=== PATIENT | male | born 1960 | race Hispanic/Latino ===

== ENCOUNTER 2017-11-17 09:54 | Outpatient (CLI) | payer MEDICARE ==
[2017-11-17 10:49] LABS: Hemoglobin 15.7 g/dL (14.0-18.0); Mean Corpuscular HGB CONC 32.1 g/dL (32.0-36.0); Mean Corpuscular Hemoglobin 27.9 pg (27.0-31.0); Mean Corpuscular Volume 86.9 fl (80.0-94.0); Mean Platelet Volume 9.7 fL (7.4-10.4); Platelet Count 126 thou/uL (130-400); RBC Distribution Width 12.7 % (11.5-14.5); Red Blood Cell (RBC) Count 5.64 mill/uL (4.70-6.10); White Blood Cell (WBC) Count 6.5 thou/uL (4.8-10.8)
[2017-11-17 10:57] LABS: INR-International Normal Ratio 1.1; PTT 29.3 SEC (22.9-36.1)
[2017-11-17 11:06] LABS: ALT (SGPT) 25 U/L (8-55); AST (SGOT) 22 U/L (5-34); Albumin 4.3 g/dL (3.5-5.0); Alkaline Phosphatase 77 U/L (40-150); Anion Gap 11 mmol/L (10-20); BUN (Urea Nitrogen) 17 mg/dL (8.4-25.7); Bilirubin, Total 0.5 mg/dL (0.2-1.2); Calc. Creatinine Clearance 0 mL/min (70-130); Calcium 9.8 mg/dL (7.8-10.44); Carbon Dioxide 28 mmol/L (22-29); Chloride 106 mmol/L (98-107); Estimated GFR-MDRD Greater than 90; Globulin 2.8 g/dL (2.4-3.5); Glucose 91 mg/dL (70-105); Potassium 4.7 mmol/L (3.5-5.1); Protein, Total 7.1 g/dL (6.0-8.3); Sodium 140 mmol/L (136-145)
--- NOTE | 2017-11-24 19:36 | EKG ---
Test Reason : Blood Pressure : / mmHG Vent. Rate : 047 BPM Atrial Rate : 047 BPM P-R Int : 186 ms QRS Dur : 086 ms QT Int : 444 ms P-R-T Axes : 044 108 053 degrees QTc Int : 392 ms Marked sinus bradycardia Possible Right ventricular hypertrophy Nonspecific ST abnormality Abnormal ECG No previous ECGs available Confirmed by JUDAH MINOR ([id number]) on 11/24/2017 7:36:17 PM Referred By: NORMAN Confirmed By:JUDAH MINOR
== END 2017-11-17 09:55 | disposition home or self-care (01) ==
LOC: LABBT 09:54
PROVIDERS: ATTEND Internal Medicine Cardiovascular Disease
DX: Z01.818 Encounter for other preprocedural examination (principal); I25.700 Atherosclerosis of coronary artery bypass graft(s), unspecified, with unstable angina pectoris; R94.39 Abnormal result of other cardiovascular function study
CPT/HCPCS: 80053; 85027; 85610; 85730; 93005; 93010

== ENCOUNTER 2017-11-21 05:48 | Day surgery (SDC) | payer MEDICARE ==
[2017-11-17 10:46] VITALS: BMI 33.0
[2017-11-21] MEDS ORDERED: Heparin 10,000 UNITS/1 ML VIAL ONE (08:23)
[2017-11-21] MEDS ORDERED: Verapamil 5 MG/2 ML VIAL ONE (08:42)
[2017-11-21] MEDS ORDERED: Nitroglycerin 100MG/250ML BOT 250 ML ONE (08:43)
[2017-11-21] MEDS ORDERED: Midazolam HCl 2 mg/2 ml Vial ONE (08:56)
[2017-11-21] MEDS ORDERED: Aggrastat 12.5 MG/250 ML 250 ML ONE (10:12)
[2017-11-21] MEDS ORDERED: Clopidogrel Bisulfate 75 MG TAB ONE (11:14)
[2017-11-21] MEDS ORDERED: Iopamidol 370 76% 100 ML VIAL ONE (17:21)
[2017-11-21] MEDS ORDERED: Iopamidol 370 76% 50 ML VIAL FS ONE (17:21)
[2017-11-21] MEDS ORDERED: Morphine 4 MG/ML VIAL ONE (18:44)
--- NOTE | 2017-12-16 16:30 | EKG ---
Test Reason : POST STENT Blood Pressure : / mmHG Vent. Rate : 043 BPM Atrial Rate : 043 BPM P-R Int : 194 ms QRS Dur : 100 ms QT Int : 474 ms P-R-T Axes : 064 106 079 degrees QTc Int : 400 ms Marked sinus bradycardia Possible Right ventricular hypertrophy Abnormal ECG When compared with ECG of 17-NOV-2017 10:25, (Unconfirmed) No significant change was found Confirmed by DR. Todd BUSTAMANTE ([id number]) on 12/16/2017 4:30:01 PM Referred By: NORMAN Confirmed By:DR. Todd BUSTAMANTE
--- NOTE | 2017-12-16 16:31 | EKG ---
Test Reason : Blood Pressure : / mmHG Vent. Rate : 048 BPM Atrial Rate : 048 BPM P-R Int : 184 ms QRS Dur : 088 ms QT Int : 466 ms P-R-T Axes : 053 106 072 degrees QTc Int : 416 ms Sinus bradycardia Possible Right ventricular hypertrophy T wave abnormality, consider anterior ischemia Abnormal ECG When compared with ECG of 21-NOV-2017 11:30, (Unconfirmed) No significant change was found Confirmed by DR. Todd BUSTAMANTE ([id number]) on 12/16/2017 4:31:37 PM Referred By: NORMAN Confirmed By:DR. Todd BUSTAMANTE
== END 2017-11-21 20:30 | disposition home or self-care (01) ==
LOC: CCL 05:48
PROVIDERS: ATTEND Internal Medicine Cardiovascular Disease
DX: I25.10 Atherosclerotic heart disease of native coronary artery without angina pectoris (principal); R94.39 Abnormal result of other cardiovascular function study; Z88.8 Allergy status to other drugs, medicaments and biological substances
CPT/HCPCS: 85347 ×3; 92977; 93005; 93454; 93798; 96374; C1769 ×2; C1874; C1887; C9600; J3246; 92928; 99152; 99153; J1644; J2250; J2270

== ENCOUNTER 2018-06-27 11:31 | Observation (INO) | payer MEDICARE ==
[2018-06-27 13:38] LABS: Troponin I Less than 0.010 ng/mL (< 0.028)
[2018-06-27] MEDS ORDERED: Aspirin 325 MG TAB PO SCH (14:45)
[2018-06-27] MEDS ORDERED: Acetaminophen 325 MG TAB PO PRN (14:45)
[2018-06-27 14:46] VITALS: BMI 34.4
[2018-06-27 16:12] LABS: Cardiac Risk 3.9 (Less than 4.5)
[2018-06-27 16:16] LABS: Troponin I Less than 0.010 ng/mL (< 0.028)
[2018-06-27] MEDS ORDERED: Ondansetron ODT 4 MG TAB PO PRN (17:57)
[2018-06-27] MEDS ORDERED: cloNIDine 0.1 MG TAB PO PRN (17:57)
[2018-06-27] MEDS ORDERED: Ondansetron HCl/PF 4 MG/2 ML Vial IVP PRN (17:57)
[2018-06-27] MEDS ORDERED: hydrALAZINE 20 MG/ML VIAL SLOW IVP PRN (17:57)
[2018-06-27] MEDS ORDERED: Acetaminophen 500 MG TAB PO PRN (17:57)
[2018-06-27] MEDS ORDERED: Lovastatin 20 MG TAB PO SCH (21:00)
[2018-06-27] MEDS: Famotidine 20 MG TAB PO SCH (21:15)
[2018-06-27] MEDS: Carvedilol 3.125 MG TAB PO SCH (21:16)
[2018-06-27] MEDS ORDERED: Nitroglycerin 2% Ointment 1 INCH/1 GM Packet TOP SCH (22:00)
--- NOTE | 2018-06-27 22:45 | HP ---
DATE OF ADMISSION: 06/27/2018 PRIMARY CARE PROVIDER: Simone Mcdermott M.D. CHIEF COMPLAINT: Chest pain and high blood pressure. HISTORY OF PRESENT ILLNESS: This is a 58-year-old male who presents to [facility] Emergency Department and transferred from [place] [facility] with some shortness of breath. The patient also notes increased blood pressure readings at home over the last 1-2 weeks. The patient states he called his primary care pr ovider's office who recommended he rest and let his pressure come down without specific change to his medication regimen. The patient states he has been compliant with his Coreg on a daily basis over t he last 2 weeks. The patient also states he has a history of coronary artery disease status post car diac stent placement to the circumflex in 11/2017 and had been on dual antiplatelet therapy with aspi rin and Plavix. The patient self-discontinued the aspirin, but continued Plavix 75 mg daily. The apuline osorio denied any recent trauma, injury, but has been lifting heavy objects at his home in the last 3- 4 days prior to this evaluation. The patient states some upper left chest wall pain reproducible whe n pushing into his pectoralis region. The patient denied any lower extremity swelling, cough, fever, congestion, or exposure history. In the emergency room, the patient underwent general evaluation in cluding screening metabolic survey which was essentially unrevealing with negative troponin I. The p atient received aspirin and transdermal nitroglycerin and referred to the observation unit. PAST MEDICAL HISTORY: 1. Coronary artery disease, status post PCI with drug-eluting stent placement to the mid circumflex artery in 11/2017. 2. Hypertension. 3. Medication noncompliance. 4. Hyperlipidemia. CURRENT MEDICATIONS: 1. Coreg 3.125 mg p.o. b.i.d. 2. Plavix 75 mg 1 tab p.o. daily. 3. Lovastatin 20 mg p.o. at bedtime. ALLERGIES: POLLEN. FAMILY HISTORY: Positive for coronary artery disease with brother sustaining a myocardial infarction at age of 72. SOCIAL HISTORY: The patient resides in [place], [place]. Disabled. No current alcohol, tobacco or i llicit drug use. REVIEW OF SYSTEMS: The following complete review of systems was negative, unless otherwise mentioned in the HPI or below: Constitutional: Weight loss or gain, ability to conduct usual activities. Ski n: Rash, itching. Eyes: Double vision, pain. ENT/Mouth: Nose bleeding, neck stiffness, pain, tend erness. Cardiovascular: Palpitations, dyspnea on exertion, orthopnea. Respiratory: Shortness of b reath, wheezing, cough, hemoptysis, fever or night sweats. Gastrointestinal: Poor appetite, abdomin al pain, heartburn, nausea, vomiting, constipation, or diarrhea. Genitourinary: Urgency, frequency, dysuria, nocturia. Musculoskeletal: Pain, swelling. Neurologic/Psychiatric: Anxiety, depression. Allergy/Immunologic: Skin rash, bleeding tendency. Otherwise negative except as stated per HPI. PHYSICAL EXAMINATION: VITAL SIGNS: On admission, blood pressure 180/101, pulse 56, respiratory rate 20, temperature 97.6 d egrees Fahrenheit, O2 saturation 96% on room air. GENERAL APPEARANCE: This is a 58-year-old male, alert and oriented x3, pleasant, conversant , in no acute distress. HEENT: Pupils are equal, round, and reactive to light and accommodation. Extraocular muscles are in tact. No scleral icterus, no conjunctival injection. Nares patent. OP is clear. Teeth in fair rep air. NECK: Supple, no cervical adenopathy, no thyromegaly, no carotid bruits, no JVD appreciated. Cervic al spine with full active and passive range of motion. No meningeal signs appreciated. CHEST: Lungs are clear to auscultation bilaterally. CARDIOVASCULAR: S1, S2, without noted murmur, rub, or gallop. ABDOMEN: Rounded, soft, nontender, nondistended. Bowel sounds are positive in all four quadrants. There is no hepatosplenomegaly, no abdominal bruits, no rebound or guarding appreciated. EXTREMITIES: Warm and dry with fair turgor. No clubbing, cyanosis or asymmetric edema appreciated. Pulses palpable distally at the dorsalis pedis, posterior tibial, and popliteal arteries bilaterally . Capillary refill less than 2 seconds. NEUROLOGIC: Cranial nerves II-XII are grossly intact. No focal or lateralizing signs appreciated. PERTINENT LABORATORY AND X-RAY FINDINGS: Complete metabolic profile within normal limits. Total cho lesterol 149, triglycerides 128, HDL 38, LDL 85, troponin I negative x3. CBC within normal limits. Portable chest x-ray dated 06/27/2018 by my review shows no acute cardiopulmonary process. EKG dated 06/27/2018 by my interpretation shows sinus bradycardia with heart rates in the 50s. Normal R-wave progression noted in precordial leads. Normal axis. No acute ST-T wave changes appreciated. ASSESSMENT AND PLAN: 1. Chest pain, etiology unclear. History of coronary artery disease, status post percutaneous coron kelsi intervention with drug-eluting stent to mid circumflex in 11/2017. We will proceed with exercise Cardiolite stress testing for comprehensive evaluation. Initial serial troponin I negative x3. Con tinue lovastatin 20 mg p.o. at bedtime. Add aspirin 325 mg daily. 2. Hypertension, labile. We will continue serial blood pressure monitoring. We will titrate antihy pertensive regimen for more optimal control. 3. Coronary artery disease status post cardiac stent placement. See #1 above. Continue Plavix 75 m g daily. 4. Hyperlipidemia. Continue lovastatin 20 mg p.o. at bedtime. 5. Prophylaxis. Sequential compression devices while in bed. Pepcid 20 mg p.o. b.i.d. 6. Code status is FULL. Surrogate medical decision maker is patient's spouse.
[2018-06-28 05:45] LABS: Band 3 % (5-11); Eosinophils 5 % (0-10); Lymphocytes 27 % (21-51); MDiff Complete? YES; Mean Corpuscular HGB CONC 33.7 g/dL (32.0-36.0); Mean Corpuscular Hemoglobin 28.2 pg (27.0-31.0); Mean Corpuscular Volume 83.5 fL (78.0-98.0); Mean Platelet Volume 10.3 fL (7.4-10.4); Monocytes 12 % (0-10); Neutrophil 53 % (42-75); PLT Morphology Comment Appears Adequate; Platelet Count 130 thou/uL (130-400); RBC Distribution Width 12.6 % (11.5-14.5); Red Blood Cell (RBC) Count 5.67 mill/uL (4.70-6.10)
[2018-06-28 05:50] LABS: Anion Gap 11 mmol/L (10-20); BUN (Urea Nitrogen) 13 mg/dL (8.4-25.7); Calc. Creatinine Clearance 141 mL/min (70-130); Calcium 9.3 mg/dL (7.8-10.44); Carbon Dioxide 23 mmol/L (22-29); Cardiac Risk 4.4 (Less than 4.5); Chloride 107 mmol/L (98-107); Cholesterol 158 mg/dl (< 200 Desired); Estimated GFR-MDRD Greater than 90; Glucose 125 mg/dL (70-105); HDL Cholesterol 36 mg/dL (>60 Neg Risk); LDL Cholesterol, Calculated 77 mg/dL; Potassium 4.2 mmol/L (3.5-5.1); Sodium 137 mmol/L (136-145); Triglycerides 227 mg/dL (Less than 150)
[2018-06-28] MEDS ORDERED: Clopidogrel Bisulfate 75 MG TAB PO SCH (09:00)
[2018-06-28] MEDS ORDERED: Aspirin 325 MG TAB PO SCH (09:00)
[2018-06-28] MEDS: Famotidine 20 MG TAB PO SCH (09:27)
[2018-06-28] MEDS: Carvedilol 3.125 MG TAB PO SCH (13:54)
[2018-06-28 15:22] VITALS: BP 160/88; TEMP 98.4
--- NOTE | 2018-06-28 16:29 | NM ---
NUCLEAR MEDICINE CARDIAC MYOCARDIAL PERFUSION SPECT EJECTION FRACTION STUDY WALL MOTION CINE: DATE: 06-28-18 HISTORY: 58-year-old hypertensive male with history of coronary artery disease and dyslipidemia. TECHNIQUE: Number of days: 1 Rest study: Tc99m sestamibi (Cardiolite) dose: 9.9 mCi Exercise stress: treadmill. Stress study: Tc99m sestamibi (Cardiolite) dose: 28.7 mCi Technetium 99M Sestamibi Patient did not achieve target heart rate. FINDINGS: CARDIAC (MYOCARDIAL PERFUSION) SPECT Distribution of sestamibi is homogeneous throughout the left ventricle, with no fixed or reversible m yocardial perfusion defects. EJECTION FRACTION STUDY EF = 66% WALL MOTION CINE The left ventricular wall motion is normal. There is normal systolic wall thickening. IMPRESSION: Normal study, but the patient did not achieve target heart rate. michele[] POS: PAYAL
--- NOTE | 2018-06-28 23:36 | DIS ---
DATE OF ADMISSION: 06/27/2018 DATE OF DISCHARGE: 06/28/2018 DISCHARGE DIAGNOSES: 1. Chest pain, non-cardiac, likely musculoskeletal. 2. Hypertension, labile. 3. Coronary artery disease, chronic and stable. 4. Hyperlipidemia. CONSULTATIONS: None. PERTINENT LABORATORY AND X-RAY FINDINGS: Troponin I negative x3. Total cholesterol 149, triglycerid es 128, HDL 38, LDL 85. Portable chest x-ray dated 06/27/2018 showed no acute cardiopulmonary proces s. Cardiolite stress test dated 06/28/2018 showed no reversible or fixed ischemia with calculated ej ection fraction of 66%. HOSPITAL COURSE: The patient was observed on the telemetry unit after initially presenting with ches t pain in the context of known coronary artery disease status post cardiac stent placement x1. Patie nt underwent serial cardiac biomarkers, which were negative x3. Patient proceeded to Cardiolite stre ss testing showing no evidence for reversible or fixed ischemia with calculated ejection fraction of 66%. Patient was noted with labile hypertension with recommendations to increase Coreg to 6.25 mg b. i.d. Patient may need additional titration of his antihypertensive regimen on an ongoing basis after discharge. Patient was also recommended to resume aspirin 81 mg daily, in addition to Plavix 75 mg daily for dual antiplatelet therapy given patient's cardiac stent placement with a drug-eluting stent . I have examined the patient at the time of discharge and discussed followup instructions. The pat ient verbalized understanding and agreement ready for discharge on 06/28/2018. DISCHARGE MEDICATIONS: 1. Plavix 75 mg 1 tab p.o. daily. 2. Enteric-coated aspirin 81 mg 1 tab p.o. daily. 3. Mevacor 20 mg p.o. at bedtime. 4. Carvedilol 6.25 mg p.o. b.i.d. FOLLOWUP: Patient will follow up with his primary care provider, Dr. Simone Mcdermott within 7 days of d ischarge. CONDITION ON DISCHARGE: Stable. ACTIVITY: Ad adri. DIET: Heart healthy. CODE STATUS: FULL. DISPOSITION: Home, 06/28/2018.
--- NOTE | 2018-07-01 10:46 | EKG ---
Test Reason : Blood Pressure : / mmHG Vent. Rate : 056 BPM Atrial Rate : 056 BPM P-R Int : 182 ms QRS Dur : 112 ms QT Int : 426 ms P-R-T Axes : 042 116 056 degrees QTc Int : 411 ms Sinus bradycardia Possible Right ventricular hypertrophy Abnormal ECG Confirmed by ELVIA DOS SANTOS, PAPITO Ulrich ([id number]), editor greeting card TAMMIE PEREZ ([id number]) on 07/01/2018 10:46:14 AM Referred By: Confirmed By:PAPITO GAN MD
--- NOTE | 2018-07-04 10:49 | STRESS ---
Acquisition Time: 2018-06-28 11:54:03 Total Exercise Time: 00:12:01 Test Indications: CHEST PAIN Medications: Protocol: SHANTANU Max HR: 123 BPM 75% of Pred: 164 BPM Max BP: 168/090 mmHG Max Work Load: 13.4 METS RESTING ECG: SINUS BRADYCARDIA AT 51 BPM WITH RIGHT AXIS DEVIATION AND EARLY REPOLARIZATION ABNORMALITY SYMPTOMS: DYSPNEA ON EXERTION NORMAL BLOOD PRESSURE RESPONSE ECTOPY: RARE PVCs ECG RESPONSE: NO SIGNIFICANT CHANGES INTERPRETATION: NON-DIAGNOSTIC DUE TO FAILURE TO REACH TARGET HEART RATE/AWAIT NUCLEAR IMAGES FOR DEFINITIVE DIAGNOSIS Confirmed by JUDAH MINOR (2), graphic editor ANKRU FORRESTER ([id number]) on 07/04/2018 10:48:36 AM Referred By: MD Gale CASTILLO Confirmed By:JUDAH MINOR
== END 2018-06-28 18:01 | disposition home or self-care (01) ==
LOC: ERS 11:31 → 2SW 14:24
PROVIDERS: ADMIT Family Medicine; ATTEND Family Medicine
DX: R07.89 Other chest pain (principal); I10 Essential (primary) hypertension; I25.10 Atherosclerotic heart disease of native coronary artery without angina pectoris; E78.5 Hyperlipidemia, unspecified; J30.1 Allergic rhinitis due to pollen; Z79.02 Long term (current) use of antithrombotics/antiplatelets; Z79.899 Other long term (current) drug therapy
CPT/HCPCS: 78452; 80048; 80061 ×2; 84484; 85007; 85027; 93005; 93017; 94760 ×2; 99285; A9500; G0378 ×2; 36415; A4216

== ENCOUNTER 2019-03-31 16:12 | Observation (INO) | payer MEDICARE ==
[2019-03-31] MEDS ORDERED: Acetaminophen 325 MG TAB PO PRN (19:47)
[2019-03-31 19:56] VITALS: BMI 32.6
[2019-03-31 20:38] LABS: Troponin I Less than 0.010 ng/mL (< 0.028)
[2019-03-31] MEDS ORDERED: Aspirin 325 mg Enteric Coated Tablet PO SCH (21:00)
[2019-03-31 23:20] LABS: Troponin I Less than 0.010 ng/mL (< 0.028)
--- NOTE | 2019-04-01 02:51 | HP ---
PRIMARY CARE PHYSICIAN: Dr. Simone Mcdermott. CHIEF COMPLAINT: Chest tightness and dizziness, symptomatic bradycardia. HISTORY OF PRESENT ILLNESS: Mr. Villa is a pleasant 58-year-old male with a past medical history of hypertension, coronary artery disease status post cardiac stent in December 2017 who had presented to the [place] ED earlier today for complaints of chest pain and tightness that he had experienced earlier today, he states that the pain resolved prior to arrival. His initial workup included a chest x-ray, which was found to be unremarkable. Cardiac enzymes were drawn and found to be negative. He was found to be bradycardic on the monitor; therefore was transferred to [facility] for further workup and management of his condition. He was then transferred to [facility]. He had denied any further symptoms of headache, blurred vision or dizziness, chest pain, palpitations, shortness of breath, abdominal pain, nausea, or vomiting. He had reported seeing his PCP yesterday due to dizziness and nausea, he states he was treated for a viral infection and was started on Zofran as needed for nausea. He had denied any bouts of vomiting. However, when he woke up this morning he had felt tightness across his chest and he experienced being dizzy, which was worse when he stood up or when he moved quickly. He was found to be in sinus bradycardic on the monitor. He states his blueprint developer is Dr. Goodrich and he was given aspirin and nitroglycerin prior to arrival. After his cardiac stent in November 2017, he had underwent a cardiac stress test in June 2018 due to chest pain; however, this was unremarkable and later discharged home with close outpatient followup with his PCP and blueprint developer Dr. Goodrich. It was determined at this time the patient be admitted for further workup and chest pain rule out. REVIEW OF SYSTEMS: All other systems reviewed and found to be negative unless mentioned in the HPI. PAST MEDICAL HISTORY: Hypertension, coronary artery disease. PAST SURGICAL HISTORY: Cardiac stent in November of 2017 and bilateral shoulder surgery. PSYCHIATRIC HISTORY: None. SOCIAL HISTORY: The patient denies any alcohol, tobacco, or illicit drug use. KNOWN ALLERGIES: No known drug allergies. CURRENT MEDICATIONS: 1. Aspirin 81 mg daily. 2. Clopidogrel 75 mg p.o. daily. 3. Lovastatin 20 mg p.o. at bedtime. 4. Amlodipine 5 mg p.o. daily. 5. Carvedilol 6.25 mg p.o. b.i.d. 6. Zofran 4 mg p.o. q.4 hours as needed for nausea. PHYSICAL EXAMINATION: VITAL SIGNS: BP 147/86, pulse 49, respirations 20, temperature 98.1 degrees Fahrenheit, O2 saturations 98% on room air. GENERAL: The patient is awake, alert, and oriented x3. He is currently sitting up in bed and in no acute distress at this time. HEENT: Atraumatic, normocephalic. Pupils are round and reactive to light. Extraocular muscles intact. Moist mucous membranes noted. NECK: Soft and supple. Trachea midline. CARDIOVASCULAR: Positive S1 and S2. Regular rhythm. However, bradycardic on the monitor. No murmur auscultated. RESPIRATORY: Clear to auscultation bilaterally. No wheezes, rales, or rhonchi. ABDOMEN: Soft, nontender. Bowel sounds present. MUSCULOSKELETAL: Strength 5+ bilaterally in upper and lower extremities. Moves all extremities equal. Pedal and radial pulses palpable 2+ bilaterally no edema noted. NEUROLOGIC: Cranial nerves 2 through 12 grossly intact. The patient is alert and oriented x3 to person, place and time. Speech intact and normal. Gait not assessed. SKIN: Warm dry and intact. No rashes. No ulceration noted. PSYCHIATRIC: Good mood and affect. LABORATORY DATA: WBC 6.8, RBC 5.69, hemoglobin 15.1, platelet 123. Sodium 141, potassium 4.0, anion gap 14, BUN 13, creatinine 0.87, estimated GFR greater than 90, glucose 154, troponin less than 0.010 x3. D-dimer less than 0.27. DIAGNOSTIC IMAGING: Chest x-ray was unremarkable and showed no acute cardiopulmonary changes. ASSESSMENT/PLAN: 1. Symptomatic bradycardia. The patient will be monitored on the monitor overnight. 2. His home dose of carvedilol will be decreased from 6.25 to 3.125 p.o. b.i.d. 3. Cardiology Services will be consulted for his symptomatic bradycardia for further evaluation and management, and an echocardiogram will be ordered for the morning. Due to patient's negative stress test in the last 12 months, this will be determined by the day medical team for possible repeat stress test tomorrow. 4. Chest pain/tightness. This is likely secondary to above. However, we will consult Cardiology Services for further evaluation. Cardiac enzymes were found to be negative x3, he will be resumed on his home medications. However, his home dose of carvedilol will be reduced to 3.125 p.o. b.i.d. 5. Hypertension. He will be restarted on his home regimen. 6. Dizziness and nausea. He will be treated with symptomatic treatment at this time, orthostatic vital signs will also be monitored. 7. Elevated blood sugar of 154. The patient denies any history of diabetes mellitus at this time. Therefore, BMP and blood sugars will be monitored throughout hospital course with further management pending his progress. 8. Deep venous thrombosis and gastrointestinal prophylaxis. CODE STATUS: Full code. DISPOSITION: The patient will be restarted on his home medications. His home dose of carvedilol will be reduced. Cardiology Services will be consulted for further evaluation and management. We will await echocardiogram results and any further recommendations from Cardiology for further disposition. Job ID: [id number]
[2019-04-01] MEDS ORDERED: Carvedilol 3.125 MG TAB PO SCH (08:00)
[2019-04-01] MEDS ORDERED: Amlodipine 5 MG TAB PO SCH (09:00)
[2019-04-01] MEDS ORDERED: Clopidogrel Bisulfate 75 MG TAB PO SCH (09:00)
[2019-04-01] MEDS ORDERED: Aspirin 81 mg Enteric Coated Tablet PO SCH (09:00)
--- NOTE | 2019-04-01 11:17 | CON ---
DATE OF CONSULTATION: 04/01/2019 REASON FOR CONSULTATION: Chest pain. PRIMARY OBSTETRICAL ANESTHESIOLOGIST: Litzy Goodrich MD HISTORY OF PRESENT ILLNESS: Mr. Villa is a pleasant 58-year-old gentleman, who comes to the hospital for lightheadedness, bradycardia, and chest pain. 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 On Tuesday, he developed chest pain yesterday. It was worse when he took a deep breath or when he moved his chest round. He thought it was musculoskeletal. He got worried because he would check his blood pressure and his heart rate was in the 40s to 50s, so he decided to come in as he was a little lightheaded as well. He was evaluated in the ER, admitted for rule out. PAST MEDICAL HISTORY: 1. Hypertension. 2. Coronary artery disease with stenting to his left circumflex in December 2017 and before that to his LAD. PAST SURGICAL HISTORY: 1. Stenting as above. 2. Bilateral shoulder surgery. SOCIAL HISTORY: No alcohol, tobacco, or drugs. OUTPATIENT MEDICATIONS: 1. Aspirin 81. 2. Clopidogrel 75 mg a day. 3. Lovastatin 10 mg q.h.s. 4. Amlodipine 5 mg a day. 5. Carvedilol 6.25 b.i.d. 6. Zofran p.r.n. recently as he has been having some nausea and vomiting. ALLERGIES: NO KNOWN DRUG ALLERGIES. REVIEW OF SYSTEMS: A 12-point review of systems was done and was all negative unless stated in the history of present illness. PHYSICAL EXAMINATION: VITAL SIGNS: Temperature 98.2; pulse 61, but has been as low as 54; respiratory rate 18; saturating 96% on room air; and blood pressure 126/72. GENERAL: Awake, alert, oriented x3, in no distress. HEENT: Normocephalic, atraumatic. NECK: Supple. LUNGS: Clear. CARDIOVASCULAR: S1 and S2. No S3 or S4. No murmurs. ABDOMEN: Soft. Positive bowel sounds. EXTREMITIES: No edema. SKIN: Warm and dry. LABORATORY DATA: Laboratory work was reviewed. CBC is unremarkable. Coags and D-dimer are undetectable. Chemistries unremarkable except for glucose of 154. Troponin is completely undetectable x4. Albumin of 4.3. EKG was reviewed. ASSESSMENT: 1. Chest pain. 2. History of coronary artery disease. 3. Bradycardia. PLAN: 1. We will stop carvedilol, this most likely reason for his bradycardia. 2. He did take some Zofran as he has some nausea and vomiting recently. 3. His chest pain is most likely musculoskeletal as he feels it when he takes a deep breath and he feels it when he moves his chest around, and it is actually getting better in the last day or so. He just got worried because his heart rate was in the low side. 4. He had a negative stress test back in June of last year that is within the year. 5. I offered him further risk stratification with a heart catheterization if the pain continued. He tells me that the pain is already getting better and he feels it only when he turns his body to the side system both the right side and the left side. He feels he is just sore from all the work that he did and his main issue was that he had bradycardia that is why he came in originally. 6. At this time, we will plan on stopping the carvedilol to avoid more bradycardia. 7. He feels better and his symptoms do correlate with musculoskeletal chest pain. Would recommend he continue Plavix and aspirin. 8. He will follow up with Dr. Goodrich in the next week or two. If his chest pain continues, he will consider heart catheterization. 9. May discharge home from the cardiac perspective after echocardiogram has been done. If echocardiogram is normal, discharge home. Job ID: [id number]
[2019-04-01 15:54] VITALS: BP 150/78; TEMP 98.3
[2019-04-01] MEDS ORDERED: Lovastatin 20 MG TAB PO SCH (21:00)
== END 2019-04-01 16:51 | disposition home or self-care (01) ==
LOC: ERS 16:12 → 2SW 19:36
PROVIDERS: ADMIT Internal Medicine; ATTEND Internal Medicine
DX: R07.89 Other chest pain (principal); R00.1 Bradycardia, unspecified; R42 Dizziness and giddiness; R11.0 Nausea; J30.1 Allergic rhinitis due to pollen; I10 Essential (primary) hypertension; I25.10 Atherosclerotic heart disease of native coronary artery without angina pectoris; Z79.02 Long term (current) use of antithrombotics/antiplatelets; Z79.82 Long term (current) use of aspirin; Z79.899 Other long term (current) drug therapy; Z88.8 Allergy status to other drugs, medicaments and biological substances; Z95.5 Presence of coronary angioplasty implant and graft
CPT/HCPCS: 84484; 93005; 93306; 99285; G0378 ×2; 36415; 36416

== ENCOUNTER 2020-04-25 13:37 | Outpatient (CLI) | payer MEDICARE ==
--- NOTE | 2020-04-25 14:33 | ULT ---
Left lower extremity venous ultrasound with Doppler HISTORY: Left leg swelling TECHNIQUE: Grayscale, color flow, Doppler imaging and spectral waveform analysis of the left lower ex tremity venous system FINDINGS: Compressibility, presence of flow and augmentation in the common femoral vein, femoral vein , popliteal vein. Flow and augmentation in the profunda femoral vein and posterior tibial vein. Compressibility of the greater saphenous vein IMPRESSION: No evidence of thrombus in the left lower extremity venous system
== END 2020-04-25 13:38 | disposition home or self-care (01) ==
LOC: BICULT 13:37
PROVIDERS: ATTEND Family Medicine
DX: M79.89 Other specified soft tissue disorders (principal)

== ENCOUNTER 2023-01-25 07:57 | Emergency (ER) | payer MEDICARE ==
[2023-01-25] MEDS ORDERED: Nitroglycerin 0.4 MG TAB 1 EACH ONE (08:38)
[2023-01-25] MEDS ORDERED: Aspirin Chewable 81 MG TAB ONE (08:38)
[2023-01-25 09:20] LABS: ALT (SGPT) 24 U/L (8-55); AST (SGOT) 20 U/L (5-34); Albumin 4.3 g/dL (3.5-5.0); Alkaline Phosphatase 79 U/L (40-110); Anion Gap 14 mmol/L (10-20); BUN (Urea Nitrogen) 13 mg/dL (8.4-25.7); Bilirubin, Total 1.2 mg/dL (0.2-1.2); Calc. Creatinine Clearance 0 mL/min (70-130); Calcium 9.2 mg/dL (7.8-10.44); Carbon Dioxide 25 mmol/L (22-29); Chloride 101 mmol/L (98-107); Estimated GFR 98; Globulin 3.3 g/dL (2.4-3.5); Glucose 114 mg/dL (70-105); Potassium 4.5 mmol/L (3.5-5.1); Protein, Total 7.6 g/dL (6.0-8.3); Sodium 135 mmol/L (136-145)
[2023-01-25 09:40] LABS: #Basophils 0.1 thou/uL (0.0-0.2); #Eosinphils 0.2 thou/uL (0.0-0.7); #Lymphocytes 2.1 thou/uL (1.20-3.40); #Monocytes 2.2 thou/uL (0.11-0.59); #Neutrophils 14.8 thou/uL (1.40-6.50); %Basophils 0.3 % (0.0-1.0); %Eosinophils 0.8 % (0.0-10.0); %Lymphocytes 11.1 % (21.0-51.0); %Monocytes 11.1 % (0.0-10.0); %Neutrophils 76.7 % (42.0-75.0); Band 15 % (5-11); Hemoglobin 15.7 g/dL (14.0-18.0); Lymphocytes 9 % (21-51); MDiff Complete? YES; Mean Corpuscular HGB CONC 32.5 g/dL (32.0-36.0); Mean Corpuscular Volume 86.4 fl (78.0-98.0); Mean Platelet Volume 11.2 fL (7.4-10.4); Monocytes 11 % (0-10); Neutrophil 58 % (42-75); Platelet Count 112 10x3/uL (130-400); Platelet Morphology Comment Appears Decreased; RBC Morphology Normal; Reactive Lymphocytes 7 % (0-10); Red Blood Cell (RBC) Count 5.59 mill/uL (4.70-6.10); White Blood Cell (WBC) Count 19.3 10x3/uL (4.8-10.8)
[2023-01-25 10:21] LABS: Bacteria/HPF None Seen HPF (None Seen); Bilirubin Negative (Negative); Blood, Urine 2+ (Negative); Clarity Cloudy (Clear); Glucose, Urine (Dipstick) Normal (Negative); Ketone, Urine Negative (Negative); Leukocyte 500 Leu/uL (Negative); Nitrite Negative (Negative); Protein, Urine (Dipstick) 30 mg/dL (Neg-Trace); RBC/HPF 21-50 HPF (0-3); Specific Gravity, Urine 1.025 (1.002-1.036); Squamous Epithelial None Seen HPF (0-3); Urobilinogen Normal mg/dL (Less than 2); WBC/HPF Greater than 50 HPF (0-3); pH, Urine 6.5 (5.0-9.0)
[2023-01-25 10:29] LABS: CK (CPK) 80 U/L (30-200)
[2023-01-25] MEDS ORDERED: Ketorolac Tromethamine 30 MG/ML VIAL ONE (10:43)
[2023-01-25] MEDS ORDERED: cefTRIAXone\\ROCEPHIN 1 GM VIAL ONE (10:43)
[2023-01-25 20:46] LABS: Chlam.trachomatis by PCR,Urine Not Detected (NotDetected); GC N.gonorrhoeae PCR,UrineVOID Not Detected (NotDetected)
== END 2023-01-25 12:59 | disposition home or self-care (01) ==
LOC: ERS 07:57
DX: N30.00 Acute cystitis without hematuria (principal); M54.50 Low back pain, unspecified; D72.829 Elevated white blood cell count, unspecified; I10 Essential (primary) hypertension; Z79.899 Other long term (current) drug therapy
CPT/HCPCS: 36415; 74176; 80053; 81003; 81015; 85025; 87086; 87491; 87591; 93005; 96365; 96366; 96375; J0696; J1885

== ENCOUNTER 2025-06-14 11:38 | Emergency (ER) | payer MEDICARE ==
[2025-06-14 13:03] LABS: Bacteria/HPF None Seen HPF (None Seen); CAUTI Indications for Culture Dysuria,urgency,freq; Glucose, Urine (Dipstick) Normal (Negative); Leukocyte Negative Leu/uL (Negative); Protein, Urine (Dipstick) 10 mg/dL (Neg-Trace); RBC/HPF 0-3 HPF (0-3); Specific Gravity, Urine 1.037 (1.002-1.036)
[2025-06-14] MEDS ORDERED: Ketorolac Tromethamine 30 MG (1 mL) VIAL ONE (13:03)
[2025-06-14] MEDS ORDERED: Acetaminophen 500 MG TAB ONE (13:03)
[2025-06-14 13:08] LABS: Urine Culture Reflex No No
[2025-06-14 13:37] LABS: #Basophils 0.06 10x3/uL (0.0-0.2); #Eosinophils 0.29 10x3/uL (0.0-0.7); #Monocytes 0.97 10x3/uL (0.11-0.59); #Neutrophils 3.70 10x3/uL (1.40-6.50); %Basophils 0.8 % (0.0-1.0); %Eosinophils 3.9 % (0.0-10.0); %Lymphocytes 32.1 % (21.0-51.0); %Monocytes 13.0 % (0.0-10.0); %Neutrophils 49.4 % (42.0-75.0); Hematocrit 45.3 % (42.0-52.0); Hemoglobin 14.7 g/dL (14.0-18.0); Mean Corpuscular Hemoglobin 27.4 pg (27.0-31.0); Mean Corpuscular Volume 84.4 fL (78.0-98.0); Platelet Count 147 10x3/uL (130-400); Red Blood Cell (RBC) Count 5.37 mill/uL (4.70-6.10); White Blood Cell (WBC) Count 7.48 10x3/uL (4.8-10.8)
[2025-06-14 13:57] LABS: ALT (SGPT) 17 U/L (Less than 45); AST (SGOT) 20 U/L (11-34); Albumin 4.2 g/dL (3.1-4.5); Alkaline Phosphatase 73 U/L (40-110); Anion Gap 11 mmol/L (10-20); BUN (Urea Nitrogen) 21 mg/dL (8.4-25.7); Bilirubin, Total 0.4 mg/dL (0.3-1.2); Calc. Creatinine Clearance 0 mL/min (70-130); Calcium 8.8 mg/dL (7.8-10.44); Carbon Dioxide 24 mmol/L (23-31); Chloride 106 mmol/L (98-107); Globulin 2.8 g/dL (2.4-3.5); Glucose 79 mg/dL (80-115); Potassium 4.3 mmol/L (3.5-5.1); Sodium 137 mmol/L (136-145)
== END 2025-06-14 14:32 | disposition home or self-care (01) ==
LOC: ERS 11:38
DX: M54.42 Lumbago with sciatica, left side (principal); I10 Essential (primary) hypertension; Z95.5 Presence of coronary angioplasty implant and graft; Z79.84 Long term (current) use of oral hypoglycemic drugs; Z79.82 Long term (current) use of aspirin; Z79.899 Other long term (current) drug therapy
CPT/HCPCS: 36415; 74176; 80053; 81001; 85025; 93005; 96372; J1885

== ENCOUNTER 2025-06-25 08:48 | Outpatient (CLI) | payer MEDICARE | END 2025-06-25 08:49 | disposition home or self-care (01) | LOC: CT 08:48 | PROVIDERS: ATTEND Orthopaedic Surgery | DX: Z01.818 Encounter for other preprocedural examination (principal); M17.12 Unilateral primary osteoarthritis, left knee | CPT/HCPCS: 80048; 85025; 85610; 87081; 93005; 93010 ==